=== PATIENT | female | born 1980 | race Caucasian/White ===

== ENCOUNTER 2017-09-15 09:40 | Observation (INO) | payer MEDICAID ==
[~2017-09-15] VITALS: Ht 157.5 cm; Wt 69.4 kg
[2017-09-15] MEDS ORDERED: PREN1TAB80 PO (10:38)
[2017-09-15 10:39] VITALS: BP 104/59
== END 2017-09-15 11:05 | disposition home or self-care (01) ==
LOC: 4S 09:40
PROVIDERS: ADMIT Obstetrics & Gynecology; ATTEND Obstetrics & Gynecology
DX: O09.523 Supervision of elderly multigravida, third trimester (principal); Z3A.35 35 weeks gestation of pregnancy
CPT/HCPCS: 59025; G0378

== ENCOUNTER 2017-09-22 10:10 | Observation (INO) | payer MEDICAID ==
[~2017-09-22] VITALS: Ht 157.5 cm; Wt 68.5 kg
[~2017-09-22 10:10] MED LIST: PREN1TAB80 PO
[2017-09-22 10:47] LABS: GLUCOMETER DEV NAME(LOC) 4S 8; GLUCOSE,POINT OF CARE 93 MG/DL (70-110)
[2017-09-22 10:53] VITALS: BP 108/56
== END 2017-09-22 11:30 | disposition home or self-care (01) ==
LOC: 4S 10:10
PROVIDERS: ADMIT Obstetrics & Gynecology; ATTEND Obstetrics & Gynecology
DX: O24.410 Gestational diabetes mellitus in pregnancy, diet controlled (principal); O62.9 Abnormality of forces of labor, unspecified; O09.523 Supervision of elderly multigravida, third trimester; Z3A.36 36 weeks gestation of pregnancy
CPT/HCPCS: 82962; G0378

== ENCOUNTER 2017-09-29 10:12 | Observation (INO) | payer MEDICAID ==
[~2017-09-29] VITALS: Ht 157.5 cm; Wt 68.9 kg
[2017-09-29 10:49] VITALS: BP 111/53
[2017-09-29 11:08] LABS: GLUCOMETER DEV NAME(LOC) 4S 8; GLUCOSE,POINT OF CARE 87 MG/DL (70-110)
== END 2017-09-29 11:45 | disposition home or self-care (01) ==
LOC: 4S 10:12
PROVIDERS: ADMIT Obstetrics & Gynecology; ATTEND Obstetrics & Gynecology
DX: O24.410 Gestational diabetes mellitus in pregnancy, diet controlled (principal); O09.523 Supervision of elderly multigravida, third trimester; Z3A.37 37 weeks gestation of pregnancy
CPT/HCPCS: 59025; 82962; G0378

== ENCOUNTER 2017-10-06 11:00 | Observation (INO) | payer MEDICAID ==
[~2017-10-06] VITALS: Ht 157.5 cm; Wt 92.5 kg
[2017-10-06 11:28] LABS: GLUCOMETER DEV NAME(LOC) 4S 8; GLUCOSE,POINT OF CARE 94 MG/DL (70-110)
[2017-10-06 11:35] VITALS: BP 111/69
== END 2017-10-06 11:50 | disposition home or self-care (01) ==
LOC: 4S 11:00
PROVIDERS: ADMIT Obstetrics & Gynecology; ATTEND Obstetrics & Gynecology
DX: O09.523 Supervision of elderly multigravida, third trimester (principal); Z3A.38 38 weeks gestation of pregnancy
CPT/HCPCS: 59025; 82962; G0378

== ENCOUNTER 2017-10-08 12:55 | Observation (INO) | payer MEDICAID ==
[2017-10-08] MEDS ORDERED: PNV1TABL54 PO (13:21)
[2017-10-08 13:22] VITALS: BP 117/64
== END 2017-10-08 14:25 | disposition home or self-care (01) ==
LOC: 4S 12:55
PROVIDERS: ADMIT Obstetrics & Gynecology; ATTEND Obstetrics & Gynecology
DX: O36.8130 Decreased fetal movements, third trimester, not applicable or unspecified (principal); O09.523 Supervision of elderly multigravida, third trimester; Z3A.38 38 weeks gestation of pregnancy
CPT/HCPCS: 59025; G0378

== ENCOUNTER 2017-10-09 13:40 | Observation (INO) | payer MEDICAID ==
[~2017-10-09] VITALS: Ht 157.5 cm; Wt 68.9 kg
[~2017-10-09 13:40] MED LIST changes: +PNV1TABL54 PO
== END 2017-10-09 16:20 | disposition home or self-care (01) ==
LOC: 4S 13:40
PROVIDERS: ADMIT Obstetrics & Gynecology; ATTEND Obstetrics & Gynecology
DX: O09.523 Supervision of elderly multigravida, third trimester (principal); Z3A.38 38 weeks gestation of pregnancy
CPT/HCPCS: 59025; G0378

== ENCOUNTER 2017-10-13 12:21 | Observation (INO) | payer MEDICAID ==
[~2017-10-13 12:21] MED LIST changes: -PNV1TABL54 PO
[2017-10-13 12:46] VITALS: BP 107/52
[2017-10-13 13:15] LABS: GLUCOMETER DEV NAME(LOC) 4S 8; GLUCOSE,POINT OF CARE 99 MG/DL (70-110)
== END 2017-10-13 14:20 | disposition home or self-care (01) ==
LOC: 4S 12:21
PROVIDERS: ADMIT Obstetrics & Gynecology; ATTEND Obstetrics & Gynecology
DX: O09.523 Supervision of elderly multigravida, third trimester (principal); Z3A.39 39 weeks gestation of pregnancy
CPT/HCPCS: 59025; 76805; 82962; G0378

== ENCOUNTER 2017-10-18 09:00 | Inpatient (IN) | payer MEDICAID ==
[~2017-10-18] VITALS: Ht 157.5 cm; Wt 68.0 kg
[2017-10-18 09:41] VITALS: BP 127/78
[2017-10-18] MEDS ORDERED: RINGERS SOLUTION,LACTATED 1,000 ML IV PRN (10:24)
[2017-10-18] MEDS ORDERED: OXYTOCIN 30 UNITS/LACT RINGERS 500 ML IV ONE ×2 (10:24→19:06)
[2017-10-18] MEDS ORDERED: METOCLOPRAMIDE HCL 5 MG/ML 2 ML VIAL IVP PRN (10:30)
[2017-10-18] MEDS ORDERED: CITRIC ACID/SODIUM CITRATE 30 ML SOLUTION UDCUP PO PRN (10:30)
[2017-10-18] MEDS ORDERED: METHYLERGONOVINE MALEATE 0.2 MG/ML VIAL IM PRN (10:30)
[2017-10-18] MEDS ORDERED: FentaNYL CITRATE-PF 100 MCG/2 ML VIAL IVP PRN (10:30)
[2017-10-18] MEDS ORDERED: OXYGEN THERAPY IH SCH (10:30)
[2017-10-18] MEDS ORDERED: LIDOCAINE HCL/PF 1% 30 ML VIAL INJ PRN ×2 (10:30→19:15)
[2017-10-18] MEDS ORDERED: RINGERS SOLUTION,LACTATED 1,000 ML IV ONE (10:32)
[2017-10-18 11:08] LABS: BASOPHILS % (AUTO) 0.3 % (0.0-2.0); EOSINOPHILS % (AUTO) 0.5 % (1.0-6.0); HEMATOCRIT 33.4 % (36-46); HEMOGLOBIN 11.4 g/dL (12.0-16.0); LYMPHOCYTES # (AUTO) 1.3 K/uL (1.0-4.8); LYMPHOCYTES % (AUTO) 26.2 % (22.0-44.0); MEAN CORPUSCULAR HEMOGLOBIN 29.1 pg (26.0-34.0); MEAN CORPUSCULAR HGB CONC 34.1 G/dL (31.0-37.0); MEAN CORPUSCULAR VOLUME 85 fL (80-100); MONOCYTES # (AUTO) 0.3 K/uL (0.1-1.0); MONOCYTES % (AUTO) 5.9 % (2.0-9.0); NEUTROPHILS # (AUTO) 3.3 K/uL (1.8-7.7); NEUTROPHILS % (AUTO) 67.1 % (40.0-70.0); PLATELET COUNT (AUTO)-OB 151 K/uL (150-450); RED BLOOD CELL COUNT(AUTO) 3.92 MIL/uL (4.00-5.20); RED CELL DISTRIBUTION WIDTH 14.7 % (11.5-14.5)
[2017-10-18] MEDS: RINGERS SOLUTION,LACTATED 1,000 ML IV SCH ×3 (11:08→20:19)
[2017-10-18] MEDS ORDERED: ROPIVACAINE HCL/PF 0.2% 100 ML ED ONE (11:15)
[2017-10-18] MEDS ORDERED: LIDOCAINE HCL/PF 2% 5 ML VIAL ONE (11:15)
[2017-10-18] MEDS ORDERED: FentaNYL/BUPIV 0.125%/NS/PF 200 ML ED PRN (11:37)
[2017-10-18] MEDS ORDERED: DiphenhydrAMINE HCL 50 MG/ML VIAL IVP PRN (11:45)
[2017-10-18] MEDS ORDERED: ONDANSETRON HCL 4 MG/2 ML VIAL IVP PRN (11:45)
[2017-10-18] MEDS ORDERED: NALBUPHINE HCL 10 MG/ML VIAL IVP PRN (11:45)
[2017-10-18] MEDS ORDERED: OXYTOCIN 30 UNITS/LACT RINGERS 500 ML IV PRN (13:26)
[2017-10-18 18:28] LABS: RUBELLA SCREEN (IGG) IMMUNE (IMMUNE)
[2017-10-18] MEDS ORDERED: OxyCODONE HCL/ACETAMINOPHEN 5-325 MG TABLET PO PRN ×2 (19:15)
[2017-10-18] MEDS ORDERED: LANOLIN 7 GM OINTMENT TP PRN (19:15)
[2017-10-18] MEDS ORDERED: BENZOCAINE 20%/MENTHOL 56 GM SPRAY CANISTER TP PRN (19:15)
[2017-10-18] MEDS ORDERED: IBUPROFEN 800 MG TABLET PO PRN (19:15)
[2017-10-18] MEDS ORDERED: GLYCERIN/WITCH HAZEL LEAF 40 PADS JAR TP PRN (19:15)
[2017-10-18] MEDS: MAGNESIUM HYDROXIDE SUSPENSION 30 ML UDCUP PO PRN (21:19)
[2017-10-19 06:32] LABS: BASOPHILS % (AUTO) 0.1 % (0.0-2.0); EOSINOPHILS % (AUTO) 0.5 % (1.0-6.0); HEMATOCRIT 32.6 % (36-46); HEMOGLOBIN 11.2 g/dL (12.0-16.0); LYMPHOCYTES # (AUTO) 1.7 K/uL (1.0-4.8); LYMPHOCYTES % (AUTO) 18.1 % (22.0-44.0); MEAN CORPUSCULAR HEMOGLOBIN 29.4 pg (26.0-34.0); MEAN CORPUSCULAR HGB CONC 34.3 G/dL (31.0-37.0); MEAN CORPUSCULAR VOLUME 86 fL (80-100); MONOCYTES # (AUTO) 0.5 K/uL (0.1-1.0); MONOCYTES % (AUTO) 5.2 % (2.0-9.0); NEUTROPHILS # (AUTO) 7.3 K/uL (1.8-7.7); NEUTROPHILS % (AUTO) 76.1 % (40.0-70.0); PLATELET COUNT (AUTO)-OB 142 K/uL (150-450); RED CELL DISTRIBUTION WIDTH 14.7 % (11.5-14.5)
[2017-10-19] MEDS: MAGNESIUM HYDROXIDE SUSPENSION 30 ML UDCUP PO PRN (08:39)
[2017-10-19] MEDS ORDERED: IBUP-2070 PO (14:07)
[2017-10-19] MEDS ORDERED: DSS100 PO (14:08)
[2017-10-19] MEDS ORDERED: FERR-89 PO (14:09)
== END 2017-10-19 17:35 | disposition home or self-care (01) | DRG 560 ==
LOC: OBSVTOIN 09:00 → 4S 09:00
PROVIDERS: ADMIT Obstetrics & Gynecology; ATTEND Obstetrics & Gynecology
PROC: 10D07Z6 Extraction of Products of Conception, Vacuum, Via Natural or Artificial Opening (ICD-10-PCS; principal; 2017-10-18)
PROC: 0HQ9XZZ Repair Perineum Skin, External Approach (ICD-10-PCS; 2017-10-18)
PROC: 3E0R3BZ Introduction of Anesthetic Agent into Spinal Canal, Percutaneous Approach (ICD-10-PCS; 2017-10-18)
PROC: 00HU33Z Insertion of Infusion Device into Spinal Canal, Percutaneous Approach (ICD-10-PCS; 2017-10-18)
DX: O69.81X0 Labor and delivery complicated by cord around neck, without compression, not applicable or unspecified (principal); O09.513 Supervision of elderly primigravida, third trimester; O70.0 First degree perineal laceration during delivery; Z37.0 Single live birth; Z3A.40 40 weeks gestation of pregnancy
CPT/HCPCS: 86592; 86762; 86850; 86900; 86901; 87340; J2590; J2795; J3010; J3490; J7120